=== PATIENT | female | born 1980 | race Caucasian/White ===

== ENCOUNTER 2019-10-02 15:22 | Outpatient (CLI) | payer OTHER, SELFPAY ==
[2019-10-02 16:36] LABS: Hematocrit 40.3 % (37.0-47.0); Hemoglobin 14.1 g/dL (12.0-15.0); Immature Platelet Fraction Pct 2.7 % (0.9-11.2); Mean Corpuscular Hemoglobin 31.3 pg (26-34); Mean Corpuscular Volume 89.4 fl (80-100); Mean Platelet Volume 10.6 fl (7.4-10.4); Platelet Count Result 75 k/mm3 (150-375); Red Blood Count 4.51 M/mm3 (4.2-5.4); Red Cell Distribution Width 11.5 % (11.5-14.5); White Blood Count 6.1 K/mm3 (4.5-10.0)
[2019-10-02 16:45] LABS: Alanine Aminotransferase 16 U/L (4-35); Albumin Level 4.2 g/dL (3.5-5.1); Alkaline Phosphatase 71 U/L (38-126); Aspartate Amino Transferase 25 U/L (14-36); Bilirubin,Total 0.3 mg/dL (0.2-1.3); Blood Urea Nitrogen 14 mg/dL (7-17); Calcium 8.8 mg/dL (8.4-10.2); Carbon Dioxide 23 mmol/L (22-30); Chloride 106 mmol/L (98-107); Estimated CRCL calculation 87 ml/min; Estimated Glomerular Filt Rate > 60; Glucose 91 mg/dL (65-105); Sodium 135 mmol/L (137-145)
[2019-10-02] MEDS: METHOTREXATE SODIUM/PF 50 MG/2 ML VIAL IM ×2 (17:08)
== END 2019-10-02 17:30 | disposition home or self-care (01) ==
LOC: ANHOBOP 16:25 → ANHOBPP 16:25
PROVIDERS: PCP Family Medicine; Visit Provider Obstetrics & Gynecology
DX: Z34.90 Encounter for supervision of normal pregnancy, unspecified, unspecified trimester (principal); Z3A.00 Weeks of gestation of pregnancy not specified
CPT/HCPCS: 36415; 80053; 84702; 85027; 85055; 96372; 99199; J9260

== ENCOUNTER 2019-10-12 09:56 | Outpatient (CLI) | payer OTHER, SELFPAY | END 2019-10-12 09:57 | disposition home or self-care (01) | LOC: ANHLAB 10:00 | PROVIDERS: PCP Family Medicine; Visit Provider Obstetrics & Gynecology | DX: O00.90 Unspecified ectopic pregnancy without intrauterine pregnancy (principal); Z3A.00 Weeks of gestation of pregnancy not specified | CPT/HCPCS: 36415; 84702 ==

== ENCOUNTER 2019-11-06 17:39 | Outpatient (RCR) | payer OTHER, SELFPAY | END 2020-01-02 23:59 | disposition home or self-care (01) | LOC: ANHLAB 17:39 | PROVIDERS: PCP Family Medicine; Visit Provider Obstetrics & Gynecology | DX: O00.90 Unspecified ectopic pregnancy without intrauterine pregnancy (principal); Z3A.00 Weeks of gestation of pregnancy not specified | CPT/HCPCS: 36415; 84702 ==

== ENCOUNTER 2019-11-07 02:22 | Outpatient (CLI) | payer OTHER, SELFPAY ==
[2019-11-07 18:53] LABS: SARS-CoV-2 RNA PCR Negative
== END 2019-11-07 02:23 | disposition home or self-care (01) ==
LOC: ANHCOVIDDT 02:23
PROVIDERS: PCP Family Medicine; Visit Provider Obstetrics & Gynecology
DX: Z01.812 Encounter for preprocedural laboratory examination (principal); Z20.828 Contact with and (suspected) exposure to other viral communicable diseases
CPT/HCPCS: 87635; C9803; U0003

== ENCOUNTER 2019-11-08 02:03 | Day surgery (SDC) | payer OTHER, SELFPAY ==
[2019-11-06 15:55] VITALS: BMI 28.8
[2019-11-08] VITALS (7 sets, daily range): BP systolic 110–122; BP diastolic 62–81; PULSE 66–103; RESP 14–18; TEMP 36.4–37; O2SAT 99–100
--- NOTE | 2019-11-08 11:22 | PM.IMHP ---
H&P: HPI History of Present Illness Date/Time: 11/08/19 11:22 Chief complaint: pelvic pain, Ectopic Narrative: Annabelle Penn is a 39 year old female Presents for surgical evaluation and treatment of ectopic . She was known to have ectopic approximately 4-5 weeks ago and was given methotrexate. Her HCG levels declined appropriately until this week which point they plateaued and ultrasound revealed continued adnexal mass with pole and actually had minimally increased in size from her prior exam 1 month ago. Options were discussed regarding further methotrexate therapy versus removal of tubal and she does desire to proceed with surgical intervention. Review of Systems Review of Systems: All systems reviewed & are unremarkable except as noted in HPI and below PMFSH Social History Social History Smoking status: Never smoker Alcohol intake: current Drinks per week: 5 Spiritual care concerns: No Meds Home Medications and Allergies Home Medications Medication Instructions Recorded Confirmed Type No Home Medications 11/06/19 11/08/19 History Allergies Allergy/AdvReac Type Severity Reaction Status Date / Time No Known Allergies Allergy Verified 11/08/19 11:07 Exam Const: General: no acute distress Resp: Auscultation: clear to auscultation bilaterally Cardio: Rate: regular rate Rhythm: regular rhythm GI: GI Palp: Yes Soft to palpation Other: Tender left lower quadrant : Other: left adnexa tender Assessment and Plan Assessment and plan (1) Ectopic : Code(s): O00.90 - Unspecified ectopic without intrauterine Status: Acute Additional Plan proceed with laparoscopic salpingectomy
[2019-11-08] MEDS: LACTATED RINGERS 1,000 ML 30 ML IV CONT ×2 (11:30→13:41)
[2019-11-08 11:50] LABS: Hematocrit 39.8 % (37.0-47.0); Immature Platelet Fraction Pct 3.1 % (0.9-11.2); Mean Corpuscular HGB Conc 35.2 g/dl (32-36); Mean Corpuscular Hemoglobin 31.3 pg (26-34); Mean Platelet Volume 9.9 fl (7.4-10.4); Platelet Count Result 74 k/mm3 (150-375); Red Blood Count 4.47 M/mm3 (4.2-5.4); Red Cell Distribution Width 11.8 % (11.5-14.5); White Blood Count 5.3 K/mm3 (4.5-10.0)
[2019-11-08] MEDS: ACETAMINOPHEN 500 MG TABLET 1000 MG PO (11:50)
[2019-11-08] MEDS: KETOROLAC 15 MG/ML VIAL (*BKC) IV PUSH (11:51)
--- NOTE | 2019-11-08 12:31 | WPDANESEPPF ---
Anes - Initial Pre Proc Eval Procedure: Operation Date: 11/08/19 13:00 Proposed Procedures p Diagnostic Laparoscopy With Left Salpingectomy - Everardo Phipps MD Date/Time: 11/08/19 12:31 Surgeon: Everardo Phipps MD Pre Op Diagnosis: pelvic pain, Ectopic Patient Data Age: 39 Gender: F Height: 5 ft 8 in Weight: 85.8 kg Last Vital Signs Temp 98.6 F 11/08/19 11:54 Pulse 74 11/08/19 11:54 Resp 16 11/08/19 11:54 BP 121/81 11/08/19 11:54 Pulse Ox 100 11/08/19 11:54 Allergies Allergy/AdvReac Type Severity Reaction Status Date / Time No Known Allergies Allergy Verified 11/08/19 11:07 Home Medications Medication Instructions Recorded Confirmed Type No Home Medications 11/06/19 11/08/19 History Laboratory Tests 11/08/19 11:42 WBC 5.3 K/mm3 K/mm3 (4.5-10.0) RBC 4.47 M/mm3 M/mm3 (4.2-5.4) Hgb 14.0 g/dL g/dL (12.0-15.0) Hct 39.8 % % (37.0-47.0) MCV 89.0 fl fl (80-100) MCH 31.3 pg pg (26-34) MCHC 35.2 g/dl g/dl (32-36) RDW 11.8 % % (11.5-14.5) Plt Count 74 k/mm3 L k/mm3 (150-375) MPV 9.9 fl fl (7.4-10.4) % Immature Plt Fraction 3.1 % % (0.9-11.2) Patient hx anesthesia problems: none Family hx anesthesia problems: none PMFSH Past Medical History Medical History (Updated 11/08/19 @ 12:31 by Kirill Lamar MD) Anemia Seizure h/o; none since brain 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 Social History Social History Smoking status: Never smoker Alcohol intake: current Drinks per week: 5 Spiritual care concerns: No Anes - Eval Final PreProcedure Day of Procedure 11/08/19 12:31 Patient weight: overweight Heart: regular rate and rhythm Lungs: clear to auscultation Airway: Mallampati scale class II Neurological: alert and oriented Last oral intake: >/= 8 hours ASA classification: II Emergent: no Anesthetic plan: proceed Anesthesia type and monitoring: general ETT and standard monitoring Informed Consent: The patient's anesthetic plan and its attendant risks and benefits were discussed with the patient/family/POA. Questions were solicited and answers provided to the satisfaction of the patient/family/POA.
--- NOTE | 2019-11-08 13:33 | PM.OP ---
Procedure Note - Brief Procedure Note - Brief Date of procedure: 11/08/19 Pre-op diagnosis: pelvic pain, Ectopic Post-op diagnosis: other (Right ovarian cyst) Procedure performed: 1. Laparoscopic left salpingectomy 2. Right ovarian cystectomy Description of procedure: patient prepped and draped in usual manner for this procedure. Trocars were placed under direct visualization. Immediate visualization of the bloody fluid was noted throughout the pelvis as well as left tubal and right ovarian cyst. Using Harmonic scalpel the left mesial salpinx was cut to remove the left tube from its vascularity and removed through Endo-Catch bag in the right lower quadrant. Right ovarian cyst was then drained of [id number] clear fluid. Irrigation was then undertaken throughout with no active bleeding and no other abnormalities noted. Gas was allowed to escape incisions approximated using 4 Monocryl in she was sent to recovery room in stable condition. Anesthesia: GLMA Surgeon: Everardo Phipps MD Estimated blood loss (mL): 20 Drains: No Packing: No Pathology: yes Complications: No immediate complications Condition: stable Disposition: PACU Findings: 1. Left ectopic 2. Right ovarian cyst 3. 100cc hemoperitoneum
== END 2019-11-08 15:53 | disposition home or self-care (01) ==
PROVIDERS: Anesthesiology; PCP Family Medicine; Visit Provider Obstetrics & Gynecology
PROC: (CPT 49320; principal; 2019-11-08 13:00)
DX: O00.90 Unspecified ectopic pregnancy without intrauterine pregnancy (principal); N83.201 Unspecified ovarian cyst, right side
CPT/HCPCS: 59151; 58662; 36415; 85027; 85055; 85461; 88302; 88305; A9270; J0330; J1100; J1885; J2250; J2405; J2704; J7120

== ENCOUNTER → 2019-11-23 15:43 | Outpatient (CLI) | payer OTHER, SELFPAY ==
--- NOTE | ~2019-11-23 | US_ITS ---
EXAMINATION: US right upper quadrant DATE: 11/23/2019 16:08 INDICATION: Right upper quadrant abdominal pain. TECHNIQUE: Multiple grayscale and Doppler ultrasound images of the abdomen were obtained. COMPARISON: None FINDINGS: Abdominal aorta is normal in caliber. The visualized portions of the head and body of the p ancreas are normal. The liver is normal without focal lesion. No liver surface nodularity. There is n ormal flow in main portal vein. The gallbladder is normal in size. No gallstones or gallbladder wall thickening. There was no sonographic Acosta sign. The common duct is normal and measures 4 mm. Right kidney is normal. IMPRESSION: 1. Normal right upper quadrant ultrasound. Reviewed, dictated and finalized at location A.
== END ==
PROVIDERS: Visit Provider Obstetrics & Gynecology
DX: R10.11 Right upper quadrant pain (principal)
CPT/HCPCS: 76705

== ENCOUNTER → 2022-04-06 10:52 | Outpatient (CLI) | payer OTHER, SELFPAY ==
--- NOTE | ~2022-04-06 | US_ITS ---
Thyroid ultrasound. Clinical History: Nontoxic thyroid nodule Findings: Real-time sonography of the thyroid gland was performed. The right lobe measures 5.1 x 1.7 x 1.7 cm. The left lobe measures 3.7 x 1.2 x 1.7 cm. The isthmus is 3 mm in AP diameter. There is a 4 mm hypoechoic nodule at the left midpole. Impression: 4 mm left midpole thyroid nodule. No further follow-up required for this finding. No other significant findings. Reviewed, dictated and finalized at location M. [employer] Impression: 4 mm left midpole thyroid nodule. No further follow-up required for this findin g. No other significant findings.
== END ==
PROVIDERS: PCP Family Medicine; Visit Provider Otolaryngology
DX: E04.1 Nontoxic single thyroid nodule (principal)
CPT/HCPCS: 76536

== ENCOUNTER 2023-10-06 11:05 | Outpatient (CLI) | payer OTHER, SELFPAY ==
[2023-10-06 11:25] LABS: Basophils Percent Auto 0.5 % (0.2-1.2); Eosinophils Absolute Auto 0.1 K/mm3 (0-0.3); Eosinophils Percent Auto 1.3 % (0-4.4); Hematocrit 42.7 % (37.0-47.0); Hemoglobin 14.4 g/dL (12.0-15.0); Immature Granulocyte Absolute 0.02 K/mm3 (0.00-0.031); Immature Granulocyte Percent A 0.4 % (0-0.5); Immature Platelet Fraction Pct 3.4 % (0.9-11.2); Mean Corpuscular HGB Conc 33.7 g/dl (32-36); Mean Corpuscular Hemoglobin 30.6 pg (26-34); Mean Corpuscular Volume 90.7 fl (80-100); Monocytes Absolute Auto 0.6 K/mm3 (0.1-0.6); Neutrophils Absolute Auto 3.2 K/mm3 (1.3-6.7); Neutrophils Percent Auto 58.8 % (45.5-73.1); Platelet Count Result 83 k/mm3 (150-375); Red Blood Count 4.71 M/mm3 (4.2-5.4); Red Cell Distribution Width 11.7 % (11.5-14.5); White Blood Count 5.5 K/mm3 (4.5-10.0)
[2023-10-13 19:09] LABS: Platelet Antibody, Direct NEGATIVE (NEGATIVE)
== END 2023-10-06 11:06 | disposition home or self-care (01) ==
LOC: ANHLAB 11:07
PROVIDERS: PCP Physician Assistant; Visit Provider Internal Medicine Hematology & Oncology
DX: D69.3 Immune thrombocytopenic purpura (principal)
CPT/HCPCS: 36415; 85025; 85055; 86023; 86038; 86039

== ENCOUNTER 2023-10-21 10:04 | Outpatient (CLI) | payer OTHER, SELFPAY ==
--- NOTE | ~2023-10-21 | US_ITS ---
Abdominal Sonogram: Real-time sonographic imaging of the abdomen was performed. Clinical History: Thrombocytopenia Findings: The liver appears normal with no evidence of mass lesion or bile duct dilatation. Main por saray vein demonstrates normal direction of flow. The spleen is upper limits of normal in size without evidence of focal lesion. The gallbladder is well distended, and appears normal with no evidence of gallstone or wall thickening. The common bile duct measures 5 mm. The visualized pancreas, aorta, an d IVC are unremarkable. The right kidney measures 12.1 cm in length and the left kidney measures 11. 9 cm. There is no hydronephrosis or renal calculus. Impression: Borderline splenomegaly. Reviewed, dictated and finalized at location . Impression: Borderline splenomegaly.
== END 2023-10-21 10:05 | disposition home or self-care (01) ==
PROVIDERS: PCP Physician Assistant; Visit Provider Internal Medicine Hematology & Oncology
DX: D69.3 Immune thrombocytopenic purpura (principal)
CPT/HCPCS: 76700